=== PATIENT | male | born 1945 | race Caucasian/White ===

== ENCOUNTER 2023-07-19 12:15 | Inpatient (IN) | payer OTHER, MEDICAID ==
[~2023-07-19] VITALS: Ht 177.8 cm; Wt 66.5 kg
[2023-07-19 13:40] LABS: Basophils # (auto) 0.1 10 ^3/uL (0-0.2); Basophils % (auto) 0.9 % (0.0-2.0); Eosinophils # (auto) 0.2 10 ^3/uL (0-0.8); Eosinophils % (auto) 2.7 % (0.0-7.0); Hematocrit 35.4 % (41.0-53.0); Hemoglobin 11.5 g/dL (13.5-17.5); Mean Corpuscular Hemoglobin 29.8 pg (28.0-32.0); Mean Corpuscular Hgb Conc. 32.5 g/dL (32.0-36.0); Mean Corpuscular Volume 91.7 fL (80.0-100.0); Monocytes # (auto) 0.6 10 ^3/uL (0-1.3); Monocytes % (auto) 10.6 % (0.0-12.0); Neutrophils # (auto) 4.2 10 ^3/uL (1.6-8.6); Neutrophils % (auto) 69.8 % (37.0-80.0); Nucleated Red Blood Cells % 0.1 %; Red Blood Cells 3.86 10^6/uL (4.5-5.90); Red Cell Distribution Width 14.6 % (11.8-14.3)
[2023-07-19 14:03] LABS: Alanine Aminotransferase 10 U/L (7-40); Albumin 4.4 g/dL (3.2-4.8); Alkaline Phosphatase 83 U/L (46-116); Anion Gap 8.7 (5-15); Aspartate Aminotransferase 11 U/L (13-40); Bilirubin, Total 1.2 mg/dL (0.2-1.0); Blood Urea Nitrogen 21 mg/dL (9-23); Calcium 9.7 mg/dL (8.5-10.1); Carbon Dioxide 22.3 mmol/L (20-30); Chloride 105 mmol/L (98-107); Glucose 87 mg/dL (74-106); Potassium 4.3 mmol/L (3.5-5.1); Sodium 136 mmol/L (136-145); Total Protein 8.2 g/dL (5.7-8.2)
[2023-07-19] MEDS ORDERED: cloNIDine HCL 0.1 MG TAB PO ONE (15:30)
[2023-07-19] MEDS: FLEET ENEMA(ADULT) 135 ML PR ONE ×2 (15:58→22:41)
[2023-07-19] MEDS ORDERED: DOCUSATE SOD 100 MG CAP PO PRN (16:45)
[2023-07-19] MEDS ORDERED: PANTOPRAZOLE 40 MG/10 ML VIAL INJ IV ONE (17:00)
[2023-07-19] MEDS ORDERED: CLON0.1T PO (17:03)
[2023-07-19] MEDS ORDERED: cloNIDine HCL 0.1 MG TAB PO PRN (17:15)
[2023-07-19] MEDS ORDERED: hydrALAZINE HCL 20 MG/ML VL IV ONE (17:15)
[2023-07-19 17:46] LABS: INR 1.07 (0.9-1.15); Partial Thromboplastin Time 34.3 SEC (24.5-34.5); Prothrombin Time 11.2 sec (9.3-11.8)
[2023-07-19 18:52] LABS: Urine Bacteria FEW /hpf (None Seen); Urine Blood Negative /uL (Negative); Urine Clarity HAZY (Clear); Urine Color Yellow (Yellow); Urine Hyaline Cast FEW /lpf (0 - 2); Urine Protein, UAD TRACE (Negative); Urine Specific Gravity 1.016 (1.001-1.035); Urine Urobilinogen Normal (Negative); Urine WBC 140 /hpf (0 - 3); Urine WBC Clumps PRESENT /hpf (None Seen)
[2023-07-19 19:13] VITALS: PULSE 74; RESP 19; O2SAT 96
[2023-07-19 20:00] VITALS: PULSE 72; RESP 16; O2SAT 96
[2023-07-20] VITALS (8 sets, daily range): BP systolic 142–156; BP diastolic 48–70; PULSE 62–76; RESP 16–18; TEMP 97.5–98.2; O2SAT 97–99
[2023-07-20 07:34] LABS: Alkaline Phosphatase 80 U/L (46-116); Anion Gap 7.9 (5-15); BUN/Creatinine Ratio 17.6 (10.0-20.0); Blood Urea Nitrogen 21 mg/dL (9-23); Calcium 9.5 mg/dL (8.5-10.1); Carbon Dioxide 24.1 mmol/L (20-30); Chloride 106 mmol/L (98-107); Glucose 76 mg/dL (74-106); Potassium 4.6 mmol/L (3.5-5.1); Sodium 138 mmol/L (136-145)
[2023-07-20 07:35] LABS: Aspartate Aminotransferase 9 U/L (13-40)
[2023-07-20 07:36] LABS: Bilirubin, Total 1.3 mg/dL (0.2-1.0); Total Protein 7.4 g/dL (5.7-8.2)
[2023-07-20 07:39] LABS: Alanine Aminotransferase < 9 U/L (7-40)
[2023-07-20 07:45] LABS: Basophils # (auto) 0.1 10 ^3/uL (0-0.2); Basophils % (auto) 1.1 % (0.0-2.0); Eosinophils # (auto) 0.2 10 ^3/uL (0-0.8); Eosinophils % (auto) 4.9 % (0.0-7.0); Hematocrit 32.2 % (41.0-53.0); Hemoglobin 10.8 g/dL (13.5-17.5); Lymphocytes % (auto) 22.1 % (10.0-50.0); Mean Corpuscular Hemoglobin 30.5 pg (28.0-32.0); Mean Corpuscular Hgb Conc. 33.5 g/dL (32.0-36.0); Monocytes # (auto) 0.6 10 ^3/uL (0-1.3); Monocytes % (auto) 12.3 % (0.0-12.0); Neutrophils # (auto) 2.7 10 ^3/uL (1.6-8.6); Neutrophils % (auto) 59.6 % (37.0-80.0); Nucleated Red Blood Cells % 0.2 %; Red Blood Cells 3.54 10^6/uL (4.5-5.90); Red Cell Distribution Width 14.2 % (11.8-14.3); White Blood Cell 4.6 10^3/uL (4.4-10.8)
[2023-07-20] MEDS: PANTOPRAZOLE 40 MG/10 ML VIAL INJ IV SCH (10:27)
[2023-07-20] MEDS: LOSARTAN POTASSIUM 25 MG TAB PO SCH (10:28)
[2023-07-20 11:28] LABS: % Iron Saturation 27.5 % (20-55)
[2023-07-20 13:09] LABS: Ferritin 22.1 ng/mL (22-322)
[2023-07-20 13:10] LABS: Folate (Folic Acid) 15.29 ng/mL (>5.38)
[2023-07-20] MEDS ORDERED: GOLYTELY 4L KIT PO ONE (15:15)
[2023-07-20] MEDS ORDERED: POLYETHYLENE GLYCOL 17 GM PWDR PO ONE (15:15)
[2023-07-20] MEDS: cefTRIAXone 1GM/50ML D5W 50 ML IV SCH (15:48)
[2023-07-21] VITALS (8 sets, daily range): BP systolic 134–176; BP diastolic 48–62; PULSE 76–83; RESP 16–19; TEMP 96.6–98.1; O2SAT 95–99
[2023-07-21 05:50] LABS: Basophils # (auto) 0 10 ^3/uL (0-0.2); Basophils % (auto) 0.3 % (0.0-2.0); Eosinophils # (auto) 0 10 ^3/uL (0-0.8); Eosinophils % (auto) 0.1 % (0.0-7.0); Hematocrit 34.9 % (41.0-53.0); Hemoglobin 11.8 g/dL (13.5-17.5); Lymphocytes # (auto) 0.4 10 ^3/uL (0.4-5.4); Lymphocytes % (auto) 7.2 % (10.0-50.0); Mean Corpuscular Hemoglobin 30.7 pg (28.0-32.0); Mean Corpuscular Hgb Conc. 33.8 g/dL (32.0-36.0); Mean Corpuscular Volume 90.9 fL (80.0-100.0); Monocytes # (auto) 0.3 10 ^3/uL (0-1.3); Monocytes % (auto) 5.9 % (0.0-12.0); Neutrophils # (auto) 4.7 10 ^3/uL (1.6-8.6); Neutrophils % (auto) 86.5 % (37.0-80.0); Red Blood Cells 3.84 10^6/uL (4.5-5.90); Red Cell Distribution Width 14.5 % (11.8-14.3); White Blood Cell 5.4 10^3/uL (4.4-10.8)
[2023-07-21] MEDS ORDERED: GOLYTELY 4L KIT PO ONE (06:00)
[2023-07-21 06:02] LABS: Chloride 108 mmol/L (98-107); Potassium 4.1 mmol/L (3.5-5.1); Sodium 143 mmol/L (136-145)
[2023-07-21 06:03] LABS: Anion Gap 9.6 (5-15); Calcium 9.6 mg/dL (8.7-10.4); Carbon Dioxide 25.4 mmol/L (20-30)
[2023-07-21 06:08] LABS: BUN/Creatinine Ratio 13.5 (10.0-20.0); Blood Urea Nitrogen 19 mg/dL (9-23); Glucose 106 mg/dL (74-106)
[2023-07-21] MEDS: PANTOPRAZOLE 40 MG/10 ML VIAL INJ IV SCH (10:04)
[2023-07-21] MEDS: cefTRIAXone 1GM/50ML D5W 50 ML IV SCH (10:05)
[2023-07-21] MEDS: LOSARTAN POTASSIUM 25 MG TAB PO SCH (10:05)
[2023-07-21] MEDS ORDERED: FLUCONAZOLE 200MG/100ML 100 ML IV ONE (10:30)
[2023-07-21] MEDS ORDERED: CYANOCOBALAMIN (B-12) 1000 MCG/1 ML VIAL IM ONE (10:30)
[2023-07-21] MEDS ORDERED: FLUC200T PO (10:32)
[2023-07-21] MEDS ORDERED: CYAN500S8 SL (10:32)
[2023-07-21] MEDS ORDERED: PANT40TA2 PO (10:32)
[2023-07-21] MEDS ORDERED: PROPOFOL 10 MG/ML 20 ML IV ONE (15:30)
[2023-07-21] MEDS ORDERED: MIDAZOLAM HCL 2MG/2ML 2ml VIAL (1mg/ml) ONE (15:30)
[2023-07-21] MEDS ORDERED: HYDROmorphone HCL 2 MG/ML VL/or syr IV PRN (16:15)
[2023-07-21] MEDS ORDERED: ONDANSETRON HCL 4 MG/2 ML VIAL IV PRN (16:15)
[2023-07-21] MEDS ORDERED: LOPERAMIDE HCL 2 MG CAP/TAB PO PRN (21:15)
[2023-07-22 05:00] VITALS: BP 115/47; PULSE 66; RESP 17; TEMP 98; O2SAT 94
[2023-07-22 08:15] VITALS: O2SAT 98
[2023-07-22 09:00] VITALS: BP 114/52; PULSE 78; RESP 19; TEMP 98; O2SAT 98
[2023-07-22] MEDS: PANTOPRAZOLE 40 MG/10 ML VIAL INJ IV SCH (09:14)
[2023-07-22] MEDS: cefTRIAXone 1GM/50ML D5W 50 ML IV SCH (09:14)
[2023-07-22] MEDS: LOSARTAN POTASSIUM 25 MG TAB PO SCH (09:16)
[2023-07-22] MEDS ORDERED: FLUCONAZOLE 200MG/100ML 100 ML IV SCH (10:00)
[2023-07-22 10:49] VITALS: BP 114/52; PULSE 78; RESP 19; TEMP 98; O2SAT 98
[2023-07-22 13:00] VITALS: BP 148/58; PULSE 81; RESP 19; TEMP 97.4; O2SAT 98
[2023-07-22 17:17] LABS: Hepatitis A Total Antibody Positive (Negative); Hepatitis B Core Total AB Negative (Negative); Hepatitis B Surface Antibody Negative (Negative); Hepatitis B Surface Antigen Negative (Negative); Hepatitis C Antibody Negative (Negative)
== END 2023-07-22 14:10 | disposition home or self-care (01) | DRG 378 ==
LOC: ER 12:15 → OVERFLOW 16:38 → CENTRAL 23:42
PROVIDERS: ADMIT Internal Medicine; ATTEND Student in an Organized Health Care Education/Training Program
PROC: 0DBK8ZZ Excision of Ascending Colon, Via Natural or Artificial Opening Endoscopic (ICD-10-PCS; principal; 2023-07-21 15:37)
DX: K57.31 Diverticulosis of large intestine without perforation or abscess with bleeding (principal); N39.0 Urinary tract infection, site not specified; I10 Essential (primary) hypertension; I16.0 Hypertensive urgency; D64.9 Anemia, unspecified; K59.09 Other constipation; E80.6 Other disorders of bilirubin metabolism; I35.1 Nonrheumatic aortic (valve) insufficiency; K64.8 Other hemorrhoids; K63.5 Polyp of colon; J44.9 Chronic obstructive pulmonary disease, unspecified; Z85.048 Personal history of other malignant neoplasm of rectum, rectosigmoid junction, and anus; Z87.891 Personal history of nicotine dependence; Z87.19 Personal history of other diseases of the digestive system; Z85.118 Personal history of other malignant neoplasm of bronchus and lung; Z88.0 Allergy status to penicillin; Z88.1 Allergy status to other antibiotic agents; Z88.6 Allergy status to analgesic agent; Z88.8 Allergy status to other drugs, medicaments and biological substances
CPT/HCPCS: 36415; 74176; 80048; 80053; 81001; 82270; 82607; 82728; 82746; 83540; 83550; 83615; 85025; 85610; 85730; 86704; 86706; 86708; 86803; 87086; 87340; 93306; 97163; C9113; G0378; J0696; J1450; J2250; J2704

== ENCOUNTER 2023-07-23 10:09 | Inpatient (IN) | payer OTHER, MEDICAID ==
[~2023-07-23] VITALS: Ht 177.8 cm; Wt 67.0 kg
[~2023-07-23 10:09] MED LIST: CLON0.1T PO; CYAN500S8 SL; FLUC200T PO; PANT40TA2 PO
[2023-07-23 11:21] LABS: Basophils # (auto) 0 10 ^3/uL (0-0.2); Basophils % (auto) 0.7 % (0.0-2.0); Eosinophils # (auto) 0.1 10 ^3/uL (0-0.8); Eosinophils % (auto) 1.6 % (0.0-7.0); Hematocrit 35.2 % (41.0-53.0); Hemoglobin 11.5 g/dL (13.5-17.5); Lymphocytes # (auto) 0.7 10 ^3/uL (0.4-5.4); Lymphocytes % (auto) 13.7 % (10.0-50.0); Mean Corpuscular Hemoglobin 30.1 pg (28.0-32.0); Mean Corpuscular Hgb Conc. 32.5 g/dL (32.0-36.0); Mean Corpuscular Volume 92.6 fL (80.0-100.0); Monocytes # (auto) 0.5 10 ^3/uL (0-1.3); Monocytes % (auto) 8.9 % (0.0-12.0); Neutrophils # (auto) 3.8 10 ^3/uL (1.6-8.6); Neutrophils % (auto) 75.1 % (37.0-80.0); Red Cell Distribution Width 14.4 % (11.8-14.3); White Blood Cell 5.1 10^3/uL (4.4-10.8)
[2023-07-23 12:05] LABS: Alanine Aminotransferase 12 U/L (7-40); Albumin 4.3 g/dL (3.2-4.8); Alkaline Phosphatase 86 U/L (46-116); Anion Gap 6 (5-15); Aspartate Aminotransferase 25 U/L (13-40); BUN/Creatinine Ratio 10.8 (10.0-20.0); Bilirubin, Total 0.6 mg/dL (0.2-1.0); Blood Urea Nitrogen 17 mg/dL (9-23); Calcium 9.6 mg/dL (8.7-10.4); Carbon Dioxide 26 mmol/L (20-30); Chloride 104 mmol/L (98-107); Glucose 101 mg/dL (74-106); Lipase 46 U/L (12-53); Potassium 4.2 mmol/L (3.5-5.1); Sodium 136 mmol/L (136-145); Total Protein 7.9 g/dL (5.7-8.2)
[2023-07-23 16:30] VITALS: PULSE 70; RESP 18; O2SAT 98
[2023-07-23 17:05] LABS: Urine Bacteria NONE SEEN /hpf (None Seen); Urine Blood Negative /uL (Negative); Urine Clarity Clear (Clear); Urine Color Yellow (Yellow); Urine Protein, UAD Negative (Negative); Urine Specific Gravity 1.011 (1.001-1.035); Urine Urobilinogen Normal (Negative); Urine WBC 2 /hpf (0 - 3); Urine pH 5.5 (5.0-8.0)
[2023-07-23] MEDS ORDERED: ONDANSETRON HCL 4 MG/2 ML VIAL IV PRN (18:30)
[2023-07-23] MEDS ORDERED: IPRATROPIUM BROM 0.5 MG/2.5ML INH SOL NEB PRN (18:30)
[2023-07-23] MEDS ORDERED: MORPHINE SULFATE INJ 2 MG/ml SYRG IV PRN (18:30)
[2023-07-23] MEDS ORDERED: ALBUTEROL SULF 2.5 MG/0.5ML(0.5%) NEB SOLN NEB PRN (18:30)
[2023-07-23 18:36] VITALS: BP 187/62; PULSE 66; RESP 16; O2SAT 97
[2023-07-23 19:01] VITALS: O2SAT 98
[2023-07-23] MEDS: SODIUM CHLORIDE 0.9% 1,000 ML IV SCH (19:21)
[2023-07-23 19:24] LABS: Creatinine, Urine 105.35 mg/dL (30.0-125.0)
[2023-07-23 19:30] VITALS: PULSE 69; RESP 20; O2SAT 96
[2023-07-23] MEDS: hydrALAZINE HCL 20 MG/ML VL IV PRN (20:08)
[2023-07-23] MEDS ORDERED: PROMETHAZINE HCL 25 MG/ML 1ML IV PRN (20:45)
[2023-07-24] VITALS (10 sets, daily range): BP systolic 118–171; BP diastolic 56–75; PULSE 63–97; RESP 16–28; TEMP 97.5–98.1; O2SAT 92–96
[2023-07-24] MEDS: SODIUM CHLORIDE 0.9% 1,000 ML IV SCH ×2 (04:30→10:25)
[2023-07-24 09:01] LABS: Albumin 3.9 g/dL (3.2-4.8); Alkaline Phosphatase 74 U/L (46-116); Anion Gap 8 (5-15); Aspartate Aminotransferase 22 U/L (13-40); BUN/Creatinine Ratio 8.6 (10.0-20.0); Blood Urea Nitrogen 10 mg/dL (9-23); Calcium 9.2 mg/dL (8.5-10.1); Carbon Dioxide 21 mmol/L (20-30); Chloride 108 mmol/L (98-107); Glucose 90 mg/dL (74-106); Potassium 4.2 mmol/L (3.5-5.1); Sodium 137 mmol/L (136-145)
[2023-07-24 09:02] LABS: Alanine Aminotransferase < 9 U/L (7-40); Bilirubin, Total 0.7 mg/dL (0.2-1.0); Total Protein 7.2 g/dL (5.7-8.2)
[2023-07-24 09:07] LABS: Basophils # (auto) 0 10 ^3/uL (0-0.2); Basophils % (auto) 0.5 % (0.0-2.0); Eosinophils # (auto) 0.2 10 ^3/uL (0-0.8); Eosinophils % (auto) 3.4 % (0.0-7.0); Hematocrit 38.4 % (41.0-53.0); Hemoglobin 12.2 g/dL (13.5-17.5); Lymphocytes # (auto) 0.7 10 ^3/uL (0.4-5.4); Lymphocytes % (auto) 12.5 % (10.0-50.0); Mean Corpuscular Hemoglobin 30.4 pg (28.0-32.0); Mean Corpuscular Hgb Conc. 31.7 g/dL (32.0-36.0); Mean Corpuscular Volume 95.8 fL (80.0-100.0); Monocytes # (auto) 0.6 10 ^3/uL (0-1.3); Monocytes % (auto) 11.6 % (0.0-12.0); Nucleated Red Blood Cells % 0.1 %; Red Blood Cells 4.01 10^6/uL (4.5-5.90); Red Cell Distribution Width 15.7 % (11.8-14.3); White Blood Cell 5.6 10^3/uL (4.4-10.8)
[2023-07-24] MEDS ORDERED: levoFLOXacin 500MG 100 ML IV ONE (10:00)
[2023-07-24] MEDS: PANTOPRAZOLE 40 MG/10 ML VIAL INJ IV SCH (10:25)
[2023-07-24] MEDS: D5W/SOD CHLO 0.9% 1,000 ML IV SCH ×2 (14:38→20:00)
[2023-07-24] MEDS: LABETALOL HCL 5 MG/ML 4ML SYRINGE IV PRN (14:39)
[2023-07-25] MEDS: D5W/SOD CHLO 0.9% 1,000 ML IV SCH ×2 (03:00→12:00)
[2023-07-25 05:00] VITALS: BP 158/57; PULSE 67; RESP 16; TEMP 97.5; O2SAT 92
[2023-07-25 06:22] LABS: Basophils # (auto) 0 10 ^3/uL (0-0.2); Basophils % (auto) 0.6 % (0.0-2.0); Eosinophils # (auto) 0.3 10 ^3/uL (0-0.8); Eosinophils % (auto) 6.3 % (0.0-7.0); Hematocrit 30.9 % (41.0-53.0); Hemoglobin 10.2 g/dL (13.5-17.5); Lymphocytes # (auto) 0.7 10 ^3/uL (0.4-5.4); Lymphocytes % (auto) 16.6 % (10.0-50.0); Mean Corpuscular Hemoglobin 30.3 pg (28.0-32.0); Mean Corpuscular Hgb Conc. 33.2 g/dL (32.0-36.0); Mean Corpuscular Volume 91.5 fL (80.0-100.0); Monocytes # (auto) 0.5 10 ^3/uL (0-1.3); Monocytes % (auto) 11.8 % (0.0-12.0); Neutrophils # (auto) 2.7 10 ^3/uL (1.6-8.6); Neutrophils % (auto) 64.7 % (37.0-80.0); Red Blood Cells 3.38 10^6/uL (4.5-5.90); Red Cell Distribution Width 14.9 % (11.8-14.3); White Blood Cell 4.1 10^3/uL (4.4-10.8)
[2023-07-25 06:32] LABS: Anion Gap 8 (5-15); Carbon Dioxide 24 mmol/L (20-30); Chloride 108 mmol/L (98-107); Potassium 3.6 mmol/L (3.5-5.1); Sodium 140 mmol/L (136-145)
[2023-07-25 06:33] LABS: Calcium 8.8 mg/dL (8.7-10.4)
[2023-07-25] MEDS: hydrALAZINE HCL 20 MG/ML VL IV PRN ×2 (06:36→19:26)
[2023-07-25 06:38] LABS: Blood Urea Nitrogen 9 mg/dL (9-23); Glucose 118 mg/dL (74-106)
[2023-07-25 06:39] LABS: Magnesium 1.5 mg/dL (1.6-2.6)
[2023-07-25 08:00] VITALS: BP 152/51; PULSE 73; PULSE 81; RESP 19; TEMP 97.5; O2SAT 92; O2SAT 94
[2023-07-25] MEDS: PANTOPRAZOLE 40 MG/10 ML VIAL INJ IV SCH (09:09)
[2023-07-25] MEDS: levoFLOXacin 250MG 50 ML IV SCH (09:09)
[2023-07-25] MEDS: LABETALOL HCL 5 MG/ML 4ML SYRINGE IV PRN ×3 (09:15→21:44)
[2023-07-25 12:00] VITALS: BP 151/52; PULSE 63; RESP 20; TEMP 97.5; O2SAT 94
[2023-07-25] MEDS ORDERED: GASTROGRAFIN 120 ML SOL ONE (12:24)
[2023-07-25 16:00] VITALS: BP 178/61; PULSE 73; RESP 20; TEMP 97.7; O2SAT 95
[2023-07-25 20:00] VITALS: PULSE 81; RESP 16; O2SAT 94
[2023-07-25] MEDS ORDERED: cloNIDine HCL 0.1 MG TAB PO ONE (21:15)
[2023-07-25] MEDS ORDERED: ENALAPRILAT 1.25 MG/ML-1ML VIAL IV ONE (21:30)
[2023-07-25 22:00] VITALS: BP 170/62; PULSE 88; RESP 16; TEMP 97.5; O2SAT 94
[2023-07-26] VITALS (11 sets, daily range): BP systolic 101–185; BP diastolic 42–67; PULSE 52–98; RESP 12–18; TEMP 97.6–98.4; O2SAT 93–98
[2023-07-26] MEDS: D5W/SOD CHLO 0.9% 1,000 ML IV SCH ×3 (04:00→20:00)
[2023-07-26] MEDS: LABETALOL HCL 5 MG/ML 4ML SYRINGE IV PRN (05:16)
[2023-07-26] MEDS: PANTOPRAZOLE 40 MG/10 ML VIAL INJ IV SCH (10:55)
[2023-07-26] MEDS: levoFLOXacin 250MG 50 ML IV SCH (10:55)
[2023-07-26] MEDS: hydrALAZINE HCL 20 MG/ML VL IV PRN (12:02)
[2023-07-27] VITALS (9 sets, daily range): BP systolic 151–174; BP diastolic 55–76; PULSE 65–100; RESP 16–18; TEMP 97.7–98; O2SAT 95–100
[2023-07-27] MEDS: D5W/SOD CHLO 0.9% 1,000 ML IV SCH (07:37)
[2023-07-27] MEDS: PANTOPRAZOLE 40 MG/10 ML VIAL INJ IV SCH (10:44)
[2023-07-27] MEDS: levoFLOXacin 250MG 50 ML IV SCH (10:44)
[2023-07-27] MEDS ORDERED: LISINOPRIL 10 MG TAB PO ONE (11:45)
== END 2023-07-27 20:05 | disposition home or self-care (01) | DRG 389 ==
LOC: EDBD 10:09 → ER 10:09 → TELE 18:24 → TELE-CENTR 22:57
PROVIDERS: ADMIT Nurse Practitioner Family; ATTEND Nurse Practitioner Acute Care
PROC: 0D9670Z Drainage of Stomach with Drainage Device, Via Natural or Artificial Opening (ICD-10-PCS; principal; 2023-07-24)
PROC: 05HA33Z Insertion of Infusion Device into Left Brachial Vein, Percutaneous Approach (ICD-10-PCS; 2023-07-25)
PROC: B54NZZA Ultrasonography of Left Upper Extremity Veins, Guidance (ICD-10-PCS; 2023-07-25)
DX: K56.609 Unspecified intestinal obstruction, unspecified as to partial versus complete obstruction (principal); C18.9 Malignant neoplasm of colon, unspecified; N17.9 Acute kidney failure, unspecified; D64.9 Anemia, unspecified; I10 Essential (primary) hypertension; J44.9 Chronic obstructive pulmonary disease, unspecified; K64.8 Other hemorrhoids; Z85.038 Personal history of other malignant neoplasm of large intestine; Z88.0 Allergy status to penicillin; Z88.1 Allergy status to other antibiotic agents; Z88.6 Allergy status to analgesic agent; Z90.49 Acquired absence of other specified parts of digestive tract
CPT/HCPCS: 36415; 71045; 74176; 74250; 80048; 80053; 81001; 82570; 83690; 83735; 84300; 85025; 93005; 94640; 96361; 96374; 96375; 97110; 97163; 97530; C9113; G0378; J1956; J2405; J3490; J7042